=== PATIENT | female | born 1985 | race Caucasian/White ===

== ENCOUNTER 2017-05-13 16:06 | Emergency (ER) | payer OTHER ==
[2017-05-13 16:38] LABS: BILIRUBIN,URINE NEGATIVE (NEGATIVE); PH,URINE 5.5 PH (5.0-7.5)
[2017-05-13] MEDS ORDERED: ONDANSETRON 4 MG/2 ML VIAL IVP STA (16:39)
[2017-05-13] MEDS ORDERED: KETOROLAC 60 MG/2 ML VIAL IVP STA (16:39)
[2017-05-13] MEDS ORDERED: SODIUM CHLORIDE 0.9% 1,000 ML IV ONE (16:39)
[2017-05-13 16:40] LABS: UA w/ MICROSCOPIC CHARGE YES
[2017-05-13 16:41] LABS: HCG UR QUAL NEGATIVE
--- NOTE | 2017-05-13 16:42 | ED Physician Documentation ---
PD HPI ABD PAIN - Stated complaint Stated Complaint: FEVER - Chief complaint Chief Complaint: Abd Pain - History obtained from History obtained from: Patient - History of Present Illness Timing - onset: How many days ago (4) Timing - duration: Days (4) Timing - details: Gradual onset, Still present Quality: Sharp, Pain Location: All over / everywhere Improved by: Laying still Worsened by: Eating, Moving, Position, Palpation Associated symptoms: Fever, Nausea, Constipation. No: Vomiting Similar symptoms before: Has not had sx before Recently seen: Not recently seen - Additional information Additional information: Previously healthy 32-year-old female has developed abdominal pain over the past 4 days she has had a decrease in her appetite and nausea. She has not had vomiting she has been somewhat constipated and pain has mounted slowly. When the pain has not resolved and the fever returned today, the patient has come to the emergency department. Review of Systems Constitutional: reports: Fever Eyes: denies: Decreased vision Ears: denies: Ear pain Nose: denies: Congestion Throat: denies: Sore throat Cardiac: denies: Chest pain / pressure, Palpitations Respiratory: denies: Dyspnea, Cough GI: reports: Abdominal Pain, Nausea, Constipation. denies: Vomiting : denies: Dysuria, Frequency Skin: denies: Rash Musculoskeletal: denies: Neck pain, Back pain, Extremity pain Neurologic: denies: Generalized weakness, Focal weakness, Numbness PD PAST MEDICAL HISTORY - Present Medications Home Medications: Ambulatory Orders Medication Instructions Recorded Confirmed No Known Home Medications [No 05/13/17 05/13/17 Known Home Medications] - Allergies Allergies/Adverse Reactions: Allergies Allergy/AdvReac Type Severity Reaction Status Date / Time Penicillins Allergy Hives Verified 05/13/17 16:18 Sulfa (Sulfonamide Allergy Hives Verified 05/13/17 16:18 Antibiotics) PD ED PE NORMAL - Vitals Vital signs reviewed: Yes (tachy and hypertensive ) - General General: Alert and oriented X 3, Well developed/nourished, Other (pale appearing female appears to be in pain ) - HEENT HEENT: Atraumatic, PERRL, EOMI - Neck Neck: Supple, no meningeal sign - Cardiac Cardiac: RRR, No murmur - Respiratory Respiratory: No respiratory distress, Clear bilaterally - Abdomen Abdomen: Soft, Other (There is RLQ tenderness to palpation without gaurding there is generalized tenderness with maximum in the right lower. ) - Back Back: No CVA TTP, No spinal TTP - Derm Derm: Normal color, No rash - Extremities Extremities: No deformity, No edema - Neuro Neuro: Alert and oriented X 3, No motor deficit, No sensory deficit, Normal speech - Psych Psych: Normal mood, Normal affect Results - Vitals Vitals: Vital Signs - 24 hr 05/13/17 05/13/17 16:14 18:27 Temperature 36.5 C Heart Rate 110 H 89 Respiratory 16 16 Rate Blood Pressure 131/83 H 142/86 H O2 Saturation 100 98 Oxygen O2 Source Room air - Labs Labs: Laboratory Tests 05/13/17 05/13/17 05/13/17 16:27 16:27 17:05 WBC 8.9 RBC 4.78 Hgb 15.3 Hct 44.7 MCV 93.5 MCH 31.9 H MCHC 34.1 RDW 13.2 Plt Count 56 L MPV 10.3 Neut # 6.2 Lymph # 1.0 L [place] # 1.7 H Eos # 0.0 Baso # 0.0 Absolute Nucleated RBC 0.00 Nucleated RBCs 0.0 Manual Slide Review Indicated Platelet Estimate DECREASED (<130,000) Platelet Morphology NORMAL APPEARANCE RBC Morph Micro Appear NORMAL APPEARANCE Sodium Potassium Chloride Carbon Dioxide Anion Gap BUN Creatinine Estimated GFR (MDRD) Glucose Calcium Total Bilirubin AST ALT Alkaline Phosphatase Total Protein Albumin Globulin Albumin/Globulin Ratio Lipase Urine Color YELLOW Urine Clarity CLEAR Urine pH 5.5 Ur Specific [place] <=1.005 <=1.005 Urine Protein NEGATIVE Urine Glucose (UA) NEGATIVE Urine Ketones NEGATIVE Urine Occult Blood MODERATE H Urine Nitrite NEGATIVE Urine Bilirubin NEGATIVE Urine Urobilinogen 0.2 (NORMAL) Ur Leukocyte Esterase NEGATIVE Urine RBC 0-5 Urine WBC 0-3 Ur Squamous Epith Cells FEW Squamous Urine Bacteria Few Ur Microscopic Review INDICATED Urine HCG, Qual NEGATIVE 05/13/17 17:05 WBC RBC Hgb Hct MCV MCH MCHC RDW Plt Count MPV Neut # Lymph # [place] # Eos # Baso # Absolute Nucleated RBC Nucleated RBCs Manual Slide Review Platelet Estimate Platelet Morphology RBC Morph Micro Appear Sodium 133 L Potassium 4.1 Chloride 100 L Carbon Dioxide 21 Anion Gap 12.0 BUN 7 Creatinine 0.8 Estimated GFR (MDRD) 84 L Glucose 159 H Calcium 8.3 L Total Bilirubin 0.6 AST 14 ALT 11 Alkaline Phosphatase 100 Total Protein 7.1 Albumin 2.9 L Globulin 4.2 Albumin/Globulin Ratio 0.7 L Lipase 12 L Urine Color Urine Clarity Urine pH Ur Specific [place] Urine Protein Urine Glucose (UA) Urine Ketones Urine Occult Blood Urine Nitrite Urine Bilirubin Urine Urobilinogen Ur Leukocyte Esterase Urine RBC Urine WBC Ur Squamous Epith Cells Urine Bacteria Ur Microscopic Review Urine HCG, Qual - Rads (name of study) CT abdomen pelvis without Radiology: Prelim report reviewed (Impression: 1. No urinary tract stones or obstruction. Mild bilateral perinephric stranding. Significance is uncertain. Correlate with history of abnormal urinalysis and costal phrenic angle pain.2. Normal appendix. No inflammation in the abdomen or pelvis. No obstruction.3. No fluid collections concerning for an abscess.), EMP read indepedently, See rad report Procedures - Bedside sono Bedside sono by EMP: With use of bedside ultrasound the gallbladder is imaged and is without evidence of stone and it is sonographically nontender. PD MEDICAL DECISION MAKING - ED course Complexity details: reviewed old records, reviewed results, re-evaluated patient , considered differential, d/w patient, d/w family ED course: 32-year-old female with a four-day history of abdominal pain and fever. She has had decreased appetite and here in the emergency department on examination she had right lower quadrant tenderness. A CT scan of the abdomen pelvis was obtained and demonstrates no evidence of inflammation of the appendix. There are no evidence of stone and no other inflammatory processes in the abdomen or pelvis. White blood cell count was normal urinalysis was normal chemistries are unremarkable. The patient is administered Toradol 30 mg intravenously and Zofran 4 mg intravenously with nearly complete resolution of her symptoms. At the conclusion of treatment reexamination shows a nontender abdomen and ultrasound examination of the gallbladder is without evidence of obvious stone. I discussed with the patient and her the findings with the expectation the symptoms will resolve in the next day. Departure - Departure Disposition: 01 Home, Self Care Clinical Impression: Abdominal pain Qualifiers: Abdominal location: generalized Qualified Code(s): R10.84 - Generalized abdominal pain Condition: Stable Instructions: ED Abdominal Pain Unkn Cause Follow-Up: Rachael Grant MD [Primary Care Provider] - Comments: Today here in the emergency department we have no specific findings for your abdominal pain and fever. We expect symptoms to resolve over the next day. If you have worsening of your symptoms return to the emergency department for further evaluation.
[2017-05-13] MEDS ORDERED: KETOROLAC 30 MG/ML VIAL ONE (16:51)
[2017-05-13] MEDS ORDERED: ONDANSETRON 4 MG/2 ML VIAL ONE (16:52)
[2017-05-13 16:54] LABS: WBC,URINE 0-3 /HPF (0-5)
[2017-05-13 17:13] LABS: BASOPHILS % (AUTO) 0.6 %; EOSINOPHILS % (AUTO) 0.1 %; HCT - HEMATOCRIT 44.7 % (37.0-47.0); HGB - HEMOGLOBIN 15.3 g/dL (12.0-16.0); LYMPHOCYTES % (AUTO) 10.8 %; MEAN CORPUSCULAR HEMOGLOBIN 31.9 pg (27.0-31.0); MEAN CORPUSCULAR HGB CONC 34.1 g/dL (32.0-36.0); MEAN CORPUSCULAR VOLUME 93.5 fL (81.0-99.0); MEAN PLATELET VOLUME 10.3 fL (7.9-10.8); MONOCYTES # (AUTO) 1.7 10^3/uL (0.0-1.0); MONOCYTES % (AUTO) 18.8 %; NEUTROPHILS # (AUTO) 6.2 10^3/uL (1.5-6.6); NEUTROPHILS % (AUTO) 69.7 %; RED BLOOD COUNT 4.78 10^6/uL (4.20-5.40); RED CELL DISTRIBUTION WIDTH 13.2 % (12.0-15.0); UNCORRECTED WHITE BLOOD COUNT 8.9 x10^3/uL; WHITE BLOOD COUNT 8.9 x10^3/uL (4.8-10.8)
[2017-05-13 17:24] LABS: ALBUMIN/GLOBULIN RATIO 0.7 (1.0-2.2); BILIRUBIN,TOTAL 0.6 mg/dL (0.2-1.0); CALCIUM 8.3 mg/dL (8.5-10.3); CREATININE 0.8 mg/dL (0.4-1.0); POTASSIUM 4.1 mmol/L (3.5-5.0); TOTAL PROTEIN 7.1 g/dL (6.7-8.2)
[2017-05-13 17:30] LABS: PLATELET ESTIMATE, MANUAL DECREASED (<130,000) (NORMAL); PLATELET MORPHOLOGY NORMAL APPEARANCE (NORMAL)
--- NOTE | 2017-05-13 17:55 | CT Preliminary Report ---
Exam: CT Abdomen/Pelvis W/O IMPRESSION: 1. No urinary tract stones or obstruction. Mild bilateral perinephric stranding. Significance is uncl ear. Correlate with history of abnormal urinalysis and costophrenic angle pain. 2. Normal appendix. No inflammation in abdomen or pelvis. No obstruction. 3. No fluid collections concerning for an abscess. [facility] SITE ID: [id number]
--- NOTE | 2017-05-13 18:20 | CT Report ---
EXAM: CT ABDOMEN AND PELVIS (CT KUB) EXAM DATE: 05/13/2017 05:30 PM. CLINICAL HISTORY: Right lower quadrant pain. Fever. COMPARISONS: None. TECHNIQUE: Routine axial helical CT imaging was performed through the abdomen and pelvis without IV c ontrast. Reconstructions: Coronal and sagittal. In accordance with CT protocol optimization, one or more of the following dose reduction techniques w ere utilized for this exam: automated exposure control, adjustment of mA and/or KV based on patient s ize, or use of iterative reconstructive technique. FINDINGS: Lung Bases: Lower lobe atelectasis. No effusions. Right Kidney/Ureter: No stones, hydronephrosis, or hydroureter. Mild perinephric fat stranding. Left Kidney/Ureter: No stones, hydronephrosis, or hydroureter. Mild perinephric fat stranding. Other Solid Organs: Noncontrast images of the solid organs are grossly unremarkable. Gallbladder/Bile Ducts: Unremarkable. Peritoneal Cavity: Small amount of free fluid in the pelvis. No bulky adenopathy or pneumoperitoneum. Subcentimeter lymph nodes are present in the retroperitoneum. Normal appendix. Pelvic Organs: No bladder stones or wall thickening. Noncontrast images of the visualized pelvic orga ns are unremarkable. Vasculature: Unremarkable. Other: None. IMPRESSION: 1. No urinary tract stones or obstruction. Mild bilateral perinephric stranding. Significance is uncl ear. Correlate with history of abnormal urinalysis and costophrenic angle pain. 2. Normal appendix. No inflammation in abdomen or pelvis. No obstruction. 3. No fluid collections concerning for an abscess. [facility] Referring Provider Line: [phone] SITE ID: [id number]
[2017-05-13 18:48] VITALS: BP 132/75
== END 2017-05-13 18:47 | disposition home or self-care (01) ==
LOC: ED 16:06
DX: R10.84 Generalized abdominal pain (principal)
CPT/HCPCS: 36415; 74176; 80053; 81001; 81003; 81025; 83690; 85025; 87040; 96374; 96375; 99283; 99284

== ENCOUNTER 2017-05-14 10:41 | Emergency (ER) | payer OTHER ==
[2017-05-14] MEDS ORDERED: ONDANSETRON 4 MG/2 ML VIAL IVP STA (12:14)
[2017-05-14] MEDS ORDERED: SODIUM CHLORIDE 0.9% 1,000 ML IV ONE ×2 (12:14→14:40)
[2017-05-14] MEDS ORDERED: HYDROmorphone 1 MG/ML SYRINGE IVP STA (12:14)
[2017-05-14] MEDS ORDERED: HYDROmorphone 1 MG/ML SYRINGE ONE (12:44)
[2017-05-14] MEDS ORDERED: ONDANSETRON 4 MG/2 ML VIAL ONE (12:45)
[2017-05-14] MEDS ORDERED: SODIUM CHLORIDE FLUSH 0.9% 10 ML SYRINGE IVP ONE ×2 (12:45→15:16)
--- NOTE | 2017-05-14 13:11 | ED Physician Documentation ---
ED Addendum - Addendum Addendum: 05/14/17 13:11 She was difficult for IV access and the RN asked me to place an IV using ultrasound guidance. I personally placed a long 20-gauge IV in the right antecubital fossa using real-time ultrasound guidance which flushed and ezequiel well. I was otherwise not involved in this patient's care.
[2017-05-14 13:37] LABS: BILIRUBIN,URINE NEGATIVE (NEGATIVE)
[2017-05-14 13:38] LABS: UA w/ MICROSCOPIC CHARGE YES
[2017-05-14 13:38] LABS: BASOPHILS % (AUTO) 0.4 %; HCT - HEMATOCRIT 46.4 % (37.0-47.0); HGB - HEMOGLOBIN 15.5 g/dL (12.0-16.0); LYMPHOCYTES % (AUTO) 8.9 %; MEAN CORPUSCULAR HEMOGLOBIN 31.2 pg (27.0-31.0); MEAN CORPUSCULAR HGB CONC 33.4 g/dL (32.0-36.0); MEAN CORPUSCULAR VOLUME 93.6 fL (81.0-99.0); NEUTROPHILS % (AUTO) 72.7 %; RED BLOOD COUNT 4.96 10^6/uL (4.20-5.40); RED CELL DISTRIBUTION WIDTH 13.4 % (12.0-15.0); UNCORRECTED WHITE BLOOD COUNT 13.6 x10^3/uL; WHITE BLOOD COUNT 13.6 x10^3/uL (4.8-10.8)
[2017-05-14 13:46] LABS: UR CULTURE IF IND NOT INDICATED; WBC,URINE 0-3 /HPF (0-5)
[2017-05-14 13:50] LABS: ALBUMIN/GLOBULIN RATIO 0.6 (1.0-2.2); BILIRUBIN,TOTAL 0.8 mg/dL (0.2-1.0); BUN - BLOOD UREA NITROGEN < 5 mg/dL (6-20); CALCIUM 8.9 mg/dL (8.5-10.3); CARBON DIOXIDE - CO2 24 mmol/L (21-32); CHLORIDE 100 mmol/L (101-111); CREATININE 0.9 mg/dL (0.4-1.0); GFR - MDRD 74 (>89); GLUCOSE 180 mg/dL (70-100); POTASSIUM 4.1 mmol/L (3.5-5.0); SODIUM 136 mmol/L (135-145); TOTAL PROTEIN 7.7 g/dL (6.7-8.2)
[2017-05-14 13:51] LABS: LIPASE < 10 U/L (22-51)
[2017-05-14 13:56] LABS: BAND NEUTROPHILS % (MANUAL) 0 %
[2017-05-14] MEDS ORDERED: IOPAMIDOL-300 100 ML VIAL IVP ONE (13:57)
--- NOTE | 2017-05-14 14:20 | CT Preliminary Report ---
Exam: CT Abdomen/Pelvis W/ IMPRESSION: 1. New patchy bibasilar infiltrates and very small bilateral pleural effusions. 2. Extensive stable shoddy mesenteric and retroperitoneal adenopathy raising the possibility of mesen teric adenitis. 3. Moderate amount of free cul-de-sac fluid. 4. New trace amount of ascites. 5. Normal appendix. [facility] SITE ID: [id number]
[2017-05-14 14:31] LABS: BASOPHILS % (MANUAL) 1 %; LYMPHOCYTES % (MANUAL) 7 %; NEUTROPHILS % (MANUAL) 73 %; TOTAL CELLS COUNTED 100
[2017-05-14 14:32] LABS: NP AUTO DIFFERENTIAL? YES; NP MAN DIFFERENTIAL? NO; PLATELET ESTIMATE, MANUAL DECREASED (<130,000) (NORMAL); PLATELET MORPHOLOGY 1+ LARGE PLATELETS (NORMAL)
--- NOTE | 2017-05-14 14:44 | CT Report ---
EXAM: CT ABDOMEN AND PELVIS WITH CONTRAST EXAM DATE: 05/14/2017 01:58 PM. CLINICAL HISTORY: Abdominal pain, especially right lower quadrant. COMPARISONS: 05/13/2017. TECHNIQUE: Routine helical CT imaging was performed through the abdomen and pelvis. IV contrast: 100 cc Isovue-300. Enteric contrast: No. Reconstructions: Coronal and sagittal. In accordance with CT protocol optimization, one or more of the following dose reduction techniques w ere utilized for this exam: automated exposure control, adjustment of mA and/or KV based on patient s ize, or use of iterative reconstructive technique. FINDINGS: Lung Bases: Increasing tiny bilateral pleural effusions. New patchy bibasilar infiltrates or platelike atelectasis. Liver: Normal. No masses. Gallbladder/Bile Ducts: Unremarkable. Spleen: Normal. Pancreas: Normal. Adrenal Glands: Normal. Kidneys: Normal. No masses or hydronephrosis. Peritoneal Cavity/Bowel: Large and small bowel of normal caliber. Stable innumerable subcentimeter ly mph nodes, retroperitoneal and mesenteric adenopathy. New trace amount of free fluid. No free air. The appendix is well visualized and normal. Pelvic Organs: Stable moderate amount of cul-de-sac fluid. Uterus and ovaries of normal caliber. No s tones in the small-caliber urinary bladder. Vasculature: No aneurysms or other significant abnormality. Bones: No significant abnormality. Other: None. IMPRESSION: 1. New patchy bibasilar infiltrates and very small bilateral pleural effusions. 2. Extensive stable shotty mesenteric and retroperitoneal adenopathy raising the possibility of mesen teric adenitis. 3. Moderate amount of free cul-de-sac fluid. 4. New trace amount of ascites. 5. Normal appendix. [facility] Referring Provider Line: [phone] SITE ID: [id number]
--- NOTE | 2017-05-14 14:45 | ED Physician Documentation ---
PD HPI ABD PAIN - Stated complaint Stated Complaint: VOMITING - Chief complaint Chief Complaint: Abd Pain - History obtained from History obtained from: Patient - History of Present Illness Timing - onset: How many days ago (5) Timing - duration: Days (5) Timing - details: Gradual onset Quality: Pain Location: All over / everywhere Associated symptoms: Fever, Nausea, Vomiting (x 1 this AM.), Loss of appetite. No: Diarrhea, Dysuria Similar symptoms before: Has not had sx before Recently seen: Emergency Dept (Yesterday.) - Additional information Additional information: The patient is a 32-year-old female who presents with generalized abdominal pain that has been gradually getting worse over the past 5 days. She reports fever 2 days ago. She has had nausea, with one episode of vomiting this morning. She denies diarrhea or dysuria. Her last menstrual period was less than 1 week ago. Her pain is worse with eating, and she reports decreased appetite. She was seen in the emergency department here yesterday, and CBC, chemistry panel, urinalysis, and CT scan of the abdomen and pelvis without contrast were all essentially normal. She returns today because of increased abdominal pain, and now with vomiting. Review of Systems Constitutional: reports: Fever Nose: denies: Congestion Throat: denies: Sore throat Cardiac: denies: Chest pain / pressure Respiratory: denies: Dyspnea, Cough GI: reports: Abdominal Pain, Nausea, Vomiting. denies: Diarrhea : reports: LMP (Less than 1 week ago.). denies: Dysuria Skin: denies: Rash Musculoskeletal: denies: Back pain Neurologic: denies: Headache PD PAST MEDICAL HISTORY - Past Medical History Cardiovascular: None Respiratory: None Neuro: None Endocrine/Autoimmune: HyPERthyroidism Other Past Medical History: Graves disease - Past Surgical History Past Surgical History: Yes HEENT: Tonsil/Adenoidectomy - Present Medications Home Medications: Ambulatory Orders Medication Instructions Recorded Confirmed HYDROcod/ACETAM 5/325 [[place] 5/325] 1 - 2 ea PO Q6H PRN #20 tablet 05/14/17 Promethazine [Phenergan] 25 - 50 mg PO Q6H PRN #10 tab 05/14/17 - Allergies Allergies/Adverse Reactions: Allergies Allergy/AdvReac Type Severity Reaction Status Date / Time Penicillins Allergy Hives Verified 05/13/17 16:18 Sulfa (Sulfonamide Allergy Hives Verified 05/13/17 16:18 Antibiotics) - Social History Does the pt smoke?: No Smoking Status: Never smoker Does the pt drink ETOH?: No Does the pt have substance abuse?: No - Immunizations Immunizations are current?: Yes - POLST Patient has POLST: No PD ED PE NORMAL - Vitals Vital signs reviewed: Yes (Mild hypertension initially.) - General General: Alert and oriented X 3, Well developed/nourished - HEENT HEENT: Atraumatic, EOMI, Moist mucous membranes, Pharynx benign - Neck Neck: Supple, no meningeal sign, No adenopathy, No JVD - Cardiac Cardiac: RRR, No murmur - Respiratory Respiratory: No respiratory distress, Clear bilaterally - Abdomen Abdomen: Normal bowel sounds, Soft, No organomegaly, Other (Diffuse tenderness to palpation, slightly worse in the RLQ than elsewhere, without rebound tenderness or guarding.) - Back Back: No CVA TTP - Derm Derm: No rash - Extremities Extremities: No edema, No calf tenderness / cord - Neuro Neuro: Alert and oriented X 3, No motor deficit, Normal speech Results - Vitals Vitals: Vital Signs - 24 hr 05/14/17 05/14/17 05/14/17 10:55 14:11 15:18 Temperature 36.1 C L Heart Rate 71 76 82 Respiratory 24 16 14 Rate Blood Pressure 146/96 H 187/106 H 193/99 H O2 Saturation 100 97 99 05/14/17 05/14/17 15:51 16:05 Temperature Heart Rate 75 74 Respiratory 14 14 Rate Blood Pressure 162/105 H 162/101 H O2 Saturation 97 97 Oxygen O2 Source Room air - Labs Labs: Laboratory Tests 05/14/17 05/14/17 05/14/17 12:30 13:15 13:15 WBC 13.6 H RBC 4.96 Hgb 15.5 Hct 46.4 MCV 93.6 MCH 31.2 H MCHC 33.4 RDW 13.4 Plt Count 85 L MPV 10.0 Neut # Not Reportable Lymph # Not Reportable [place] # Not Reportable Eos # Not Reportable Baso # Not Reportable Absolute Nucleated RBC Not Reportable Total Counted 100 Band Neuts % (Manual) 0 Abnorm Lymph % (Manual) 5 Neutrophils # (Manual) 9.9 H Lymphocytes # (Manual) 1.6 Monocytes # (Manual) 1.9 H Basophils # (Manual) 0.1 Nucleated RBCs Not Reportable Differential Comment MANUAL DIFFERENTIAL Platelet Estimate DECREASED (<130,000) Platelet Morphology 1+ LARGE PLATELETS RBC Morph Micro Appear NORMAL APPEARANCE Sodium 136 Potassium 4.1 Chloride 100 L Carbon Dioxide 24 Anion Gap 12.0 BUN < 5 L Creatinine 0.9 Estimated GFR (MDRD) 74 L Glucose 180 H Calcium 8.9 Total Bilirubin 0.8 AST 16 ALT 12 Alkaline Phosphatase 123 H Total Protein 7.7 Albumin 3.0 L Globulin 4.7 H Albumin/Globulin Ratio 0.6 L Lipase < 10 L Urine Color YELLOW Urine Clarity CLEAR Urine pH 6.0 Ur Specific [place] <=1.005 Urine Protein NEGATIVE Urine Glucose (UA) NEGATIVE Urine Ketones NEGATIVE Urine Occult Blood SMALL H Urine Nitrite NEGATIVE Urine Bilirubin NEGATIVE Urine Urobilinogen 0.2 (NORMAL) Ur Leukocyte Esterase NEGATIVE Urine RBC 0-5 Urine WBC 0-3 Ur Squamous Epith Cells MANY Squamous H Urine Bacteria Moderate H Ur Microscopic Review INDICATED Urine Culture Comments NOT INDICATED - Rads (name of study) CT abd/pelvis with IV contrast Radiology: Prelim report reviewed, EMP read contemporaneously, See rad report (1 ) New patchy bibasilar infiltrates and very small bilateral pleural effusions. 2 ) Extensive stable shotty mesenteric and retroperitoneal adenopathy raising the possibility of mesenteric adenitis. 3) Moderate amount of free cul-de-sac fluid. 4) New trace amount of ascites. 5) Normal appendix.) PD MEDICAL DECISION MAKING - ED course Complexity details: reviewed old records, reviewed results, re-evaluated patient , considered differential, d/w patient, d/w family ED course: The patient's presentation is most consistent with mesenteric adenitis. CT scan of the abdomen and pelvis with IV contrast reveals a normal appendix, but with increased mesenteric lymph nodes. Presentation does not suggest diverticulitis, and with negative test last night, ectopic is unlikely. Compared to last night her white blood cell count has gone up to 13.6. Urinalysis is essentially negative. Treatment in the emergency department included administration of normal saline 2 L IV, Dilaudid 1 mg and Zofran 4 mg IV, and ketorolac 30 mg IV. On reevaluation her symptoms are much improved, and her abdomen is benign. She is being discharged with prescriptions for Phenergan and for Vicodin, 15 tablets. I discussed with her and her the results of her workup, expected course of illness, symptomatic treatment and outpatient follow-up, as well as potentially worrisome signs or symptoms that should prompt reevaluation in the emergency department. Departure - Departure Disposition: 01 Home, Self Care Clinical Impression: Mesenteric adenitis Abdominal pain Qualifiers: Abdominal location: generalized Qualified Code(s): R10.84 - Generalized abdominal pain Vomiting Qualifiers: Vomiting type: unspecified Vomiting Intractability: non-intractable Nausea presence: with nausea Qualified Code(s): R11.2 - Nausea with vomiting, unspecified Condition: Stable Instructions: ED Abdominal Pain Unkn Cause, ED Adenitis Mesenteric Follow-Up: Rachael Grant MD [Primary Care Provider] - Prescriptions: HYDROcod/ACETAM 5/325 [[place] 5/325] 1 - 2 ea PO Q6H PRN #20 tablet PRN Reason: Pain Promethazine [Phenergan] 25 - 50 mg PO Q6H PRN #10 tab PRN Reason: Nausea / Vomiting Comments: Drink plenty of fluids. You can use Phenergan as prescribed if needed for nausea. You can use Vicodin as prescribed if needed for pain. Follow-up with your primary physician within 1 week. Call to schedule appointment. Return to the emergency department if you develop increasing abdominal pain, persistent vomiting, or otherwise worsening symptoms. Forms: Activity restrictions Discharge Date/Time: 05/14/17 16:15
[2017-05-14] MEDS ORDERED: KETOROLAC 30 MG/ML VIAL IVP STA (15:05)
[2017-05-14] MEDS ORDERED: KETOROLAC 30 MG/ML VIAL ONE (15:16)
[2017-05-14 16:06] VITALS: BP 162/101
== END 2017-05-14 16:15 | disposition home or self-care (01) ==
LOC: ED 10:41
DX: I88.0 Nonspecific mesenteric lymphadenitis (principal); R11.2 Nausea with vomiting, unspecified; E05.00 Thyrotoxicosis with diffuse goiter without thyrotoxic crisis or storm
CPT/HCPCS: 36415; 74177; 80053; 81001; 83690; 85025; 96361; 96374; 96375; 99284; J1170; Q9967; 36410; 81003; 87086

== ENCOUNTER 2017-06-11 16:02 | Outpatient (CLI) | payer OTHER ==
--- NOTE | 2017-06-11 16:43 | XRAY Preliminary Report ---
Exam: XR Chest 2 View PA/LAT IMPRESSION: Right basilar opacification could represent atelectasis or infection. [facility] SITE ID: [id number]
--- NOTE | 2017-06-11 16:45 | XRAY Report ---
EXAM: CHEST RADIOGRAPHY EXAM DATE: 06/11/2017 04:21 PM. CLINICAL HISTORY: Shortness breath, congestive heart failure COMPARISON: None. TECHNIQUE: 2 views. FINDINGS: Lungs/Pleura: There is mild platelike opacity right lung base. No pneumothorax or pleural effusions. Mediastinum: Heart and mediastinal contours are unremarkable. Other: None. IMPRESSION: Right basilar opacification could represent atelectasis or infection. [facility] Referring Provider Line: [phone] SITE ID: [id number]
== END 2017-06-11 16:03 | disposition home or self-care (01) ==
LOC: DI.S 16:02
PROVIDERS: ATTEND Nurse Practitioner Family
DX: R91.8 Other nonspecific abnormal finding of lung field (principal)
CPT/HCPCS: 71020

== ENCOUNTER 2017-06-30 16:34 | Outpatient (CLI) | payer OTHER ==
--- NOTE | 2017-07-01 09:00 | XRAY Report ---
TWO-VIEW CHEST: 06/30/2017 CLINICAL INDICATION: Pneumonia followup. COMPARISON: 06/11/2017 FINDINGS: Frontal and lateral views of the chest demonstrate a normal cardiac silhouette. Right bas ilar air-space disease has improved significantly, with minimal linear atelectasis or scarring remain ing. No effusion or pneumothorax is present. IMPRESSION: SIGNIFICANT INTERVAL IMPROVEMENT IN RIGHT BASILAR AIR-SPACE DISEASE, WITH MINIMAL RESIDU AL LINEAR SCARRING OR ATELECTASIS. JOB #: [id number] EXT JOB #:[id number]
== END 2017-06-30 16:35 | disposition home or self-care (01) ==
LOC: DI.S 16:34
PROVIDERS: ATTEND Nurse Practitioner Family
DX: J18.9 Pneumonia, unspecified organism (principal)
CPT/HCPCS: 71020

== ENCOUNTER 2022-06-12 01:51 | Outpatient (CLI) | payer OTHER ==
[2022-06-12 02:18] LABS: BILIRUBIN,URINE NEGATIVE (NEGATIVE); GLUCOSE, URINE (UA) NEGATIVE (NEGATIVE); KETONES,URINE (UA) NEGATIVE (NEGATIVE); LEUKOCYTE ESTERASE, URINE NEGATIVE (NEGATIVE); NITRITE,URINE NEGATIVE (NEGATIVE); OCCULT BLOOD,URINE LARGE (NEGATIVE); PROTEIN,URINE NEGATIVE (NEGATIVE); UROBILINOGEN,URINE 0.2 (NORMAL) E.U./dL (NORMAL)
[2022-06-12 02:24] LABS: CLARITY,URINE CLEAR (CLEAR)
[2022-06-12 02:25] LABS: BACTERIA,URINE Rare /HPF (None Seen); RBC,URINE 0-5 /HPF (0-5); SQUAMOUS EPITHELIAL CELL,UR FEW Squamous (<= Few); WBC,URINE 0-3 /HPF (0-5)
[2022-06-12 03:08] VITALS: BP 130/87
--- NOTE | 2022-06-12 04:10 | PROCEDURE REPORT ---
- HPI Diagnosis/Indication for NST: Other (Vaginal bleeding at 37 weeks (With history of low-lying placenta) Elderly primigravida Bob's disease Graves' disease) Current EDU 07/01/22 Gestation 37 Weeks and 2 Days 1 Para 0 Vital Signs Temperature 99.5 F 06/12/22 02:05 Heart Rate 92 06/12/22 02:05 Respiratory Rate 18 06/12/22 02:05 Blood Pressure 130/87 H 06/12/22 02:05 O2 Saturation 100 06/12/22 02:05 Temperature 99.5 F 06/12/22 02:05 Heart Rate 92 06/12/22 02:05 Respiratory Rate 18 06/12/22 02:05 Blood Pressure 130/87 H 06/12/22 02:05 O2 Saturation 100 06/12/22 02:05 If not protocol: Oxygen Flow, liters/minute - NST Procedure NST Procedure Start Date 06/12/22 Start Time 03:20 Stop Time 03:40 Vibroacoustic Stimulation Used No Patient States Movement Yes Uterine activity: No contractions Nonstress test: heart rate baseline rate: 145 heart rate baseline: Normal range (110-160 bpm) heart rate variability: Moderate (amplitude range 6 to 25 bpm) heart rate accelerations: Greater than/equal to 15 bpm and lasting at least 15 seconds heart rate deceleration: Absent Interpretation: Nonstress test interpretation: Reactive Testing explained: Yes Plan: Continue with her ocean export account manager - Results and Plan Findings/Impression: Reactive Plan: She wants to be follow-up with her own ocean export account manager
[2022-06-12 04:11] LABS: HCT - HEMATOCRIT 36.4 % (37.0-47.0); HGB - HEMOGLOBIN 12.5 g/dL (12.0-16.0); MEAN CORPUSCULAR HEMOGLOBIN 31.2 pg (27.0-31.0); MEAN CORPUSCULAR HGB CONC 34.3 g/dL (32.0-36.0); MEAN CORPUSCULAR VOLUME 90.8 fL (81.0-99.0); MEAN PLATELET VOLUME 10.7 fL (7.9-10.8); RED BLOOD COUNT 4.01 10^6/uL (4.20-5.40); RED CELL DISTRIBUTION WIDTH 12.8 % (12.0-15.0); WHITE BLOOD COUNT 8.4 x10^3/uL (4.8-10.8)
[2022-06-12 04:21] LABS: CALCIUM 9.1 mg/dL (8.5-10.3); CREATININE 0.6 mg/dL (0.4-1.0); POTASSIUM 3.7 mmol/L (3.5-5.0)
--- NOTE | 2022-06-12 04:39 | PROVIDER PROGRESS NOTE ---
Progress Note This 37-year-old primigravida EDC July 01 presented to the labor and delivery early this morning with chief complaint of vaginal bleeding. She has been seen by her machine molder and hose stripper at the [facility] in [place]. 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 She has been taking her medication for thyroid, Bob's disease and aspirin. She was not seen by her machine molder, hose stripper and maternal- medicine Dr. She was diagnosed to have low-lying placenta earlier and serial follow-up ultrasound study showed that the low-lying placenta was resolved because the placenta was more than 2.5 cm away from the internal os. She was advised not to continue to have pelvic rest. She resumed her sexual activities 3 days before the admission and the last one was yesterday evening. She started to have some vaginal bleeding and she was unable to go to [place] because the last [place] left already therefore she came up here to be checked. Speculum examination revealed no active bleeding but a small blood clots in the vagina and the cervix looked closed. Endovaginal ultrasound was done with caution, and it showed no placenta near the internal os. Amniotic fluid was noted and the internal os was intact. Careful distal exam confirmed that. Her home COVID-19 test was positive last month and she has been symptom-free more than 10 days. Since she does not have any contractions and no active bleeding, she and her want to be discharged so they can see their own doctor this morning. Her BMP and CBC were done and the results still pending and I will contact the doctor front end alignment specialist and discuss.Her labs are all normal.
--- NOTE | 2022-06-12 05:06 | Discharge Plan ---
Discharge Plan Problem Reviewed?: Yes Disposition: Home, Self Care Diet: Regular Activity Restrictions: pelvic rest Shower Restrictions: No Driving Restrictions: No Weight Bearing: less than 20 lbs No Smoking: If you smoke, Please STOP! Call for help. Follow-up with: Provider,Other [Primary Care Provider] -
== END 2022-06-12 05:36 | disposition home or self-care (01) ==
LOC: WFO 01:51 → FBP 01:54 → WFO 05:36
PROVIDERS: ATTEND Obstetrics & Gynecology
DX: O46.93 Antepartum hemorrhage, unspecified, third trimester (principal); O09.513 Supervision of elderly primigravida, third trimester; Z3A.37 37 weeks gestation of pregnancy; O99.283 Endocrine, nutritional and metabolic diseases complicating pregnancy, third trimester; E05.00 Thyrotoxicosis with diffuse goiter without thyrotoxic crisis or storm; E27.1 Primary adrenocortical insufficiency; Z87.59 Personal history of other complications of pregnancy, childbirth and the puerperium
CPT/HCPCS: 36415; 59025; 80048; 81001; 84443; 85027; 87086; 99215